=== PATIENT | male | born 1960 | race Caucasian/White ===

== ENCOUNTER 2018-08-15 09:17 | Emergency (ER) | payer OTHER ==
[2018-08-15] MEDS ORDERED: ASPIRIN 81 MG CHEWABLE CTB PO STA (09:25)
[2018-08-15] MEDS ORDERED: NITROGLYCERIN 0.4 MG TAB SL PRN ×2 (09:25→09:27)
[2018-08-15] MEDS ORDERED: SODIUM CHLORIDE 0.9% FLUSH 10 ML SOL IV PRN (09:25)
[2018-08-15] MEDS ORDERED: ALUMINUM/MAGNESIUM 30 ML SUS PO ONE (09:26)
[2018-08-15] MEDS ORDERED: FENTANYL 100MCG/2ML SOL IV PRN (09:27)
[2018-08-15] MEDS ORDERED: ASPIRIN 81 MG CHEWABLE CTB ONE (09:27)
[2018-08-15] MEDS ORDERED: ALUMINUM/MAGNESIUM 30 ML SUS ONE (09:29)
[2018-08-15 09:30] LABS: BASOPHILS % (AUTO) 1 % (0-3); EOSINOPHILS % (AUTO) 4 % (0-9); HEMATOCRIT 45 % (39-53); HEMOGLOBIN 14.8 gm/dl (13.5-17.7); LYMPHOCYTES % (AUTO) 19.4 % (10-50); MEAN CORPUSCULAR HEMOGLOBIN 28.4 pg (27.0-32.0); MEAN CORPUSCULAR HGB CONC 32.6 gm/dl (32.0-36.0); MEAN CORPUSCULAR VOLUME 87 fL (80-100); MONOCYTES % (AUTO) 7.4 % (0-12); NEUTROPHILS % (AUTO) 67.6 % (37-80)
[2018-08-15] MEDS ORDERED: SODIUM CHLORIDE 0.9% 1000ML 1,000 ML IV SCH (09:30)
[2018-08-15 09:32] VITALS: TEMP 97.4
[2018-08-15 09:47] LABS: INR 0.96 (0.86-1.12)
[2018-08-15] MEDS ORDERED: NITROGLYCERIN 0.4 MG TAB SL ONE (09:53)
[2018-08-15 09:58] LABS: ALBUMIN 3.6 gm/dl (3.4-5.0); ALKALINE PHOSPHATASE 73 IU/L (46-116); ALT 30 IU/L (14-63); AST 18 IU/L (15-37); BILIRUBIN,TOTAL 0.3 mg/dl (0.2-1.0); BLOOD UREA NITROGEN 23 mg/dl (7-18); CALCIUM 8.7 mg/dl (8.5-10.1); CARBON DIOXIDE 29.5 mEq/L (21-32); CHLORIDE 103 mMol/L (98-107); CREATININE 1.24 mg/dl (0.80-1.30); GLUCOSE 105 mg/dl (74-106); SODIUM 140 mMol/L (136-145); TOTAL PROTEIN 7.3 gm/dl (6.4-8.2); TROP I < 0.017 ng/ml (0.000-0.056)
[2018-08-15 12:26] LABS: AMPHETAMINES NEGATIVE (NEGATIVE); BARBITUATES NEGATIVE (NEGATIVE); BENZODIAZEPINES NEGATIVE (NEGATIVE); CANNABINOL(THC) POSITIVE (NEGATIVE); COCAINE(COC) NEGATIVE (NEGATIVE); METHADONE NEGATIVE (NEGATIVE); METHAMPHETAMINES NEGATIVE (NEGATIVE); OPIATES(OPI) NEGATIVE (NEGATIVE); OXYCODONE(OXY) NEGATIVE (NEGATIVE); PROPOXYPHENE(PPX) NEGATIVE (NEGATIVE); TRICYCLIC ANTIDEPRESSANTS NEGATIVE (NEGATIVE)
[2018-08-15 13:35] VITALS: BP 143/87; PULSE 63; RESP 18; O2SAT 100
== END 2018-08-15 12:54 | disposition left against medical advice (07) ==
LOC: ED 09:17
DX: R07.89 Other chest pain (principal); K21.9 Gastro-esophageal reflux disease without esophagitis; F17.200 Nicotine dependence, unspecified, uncomplicated
CPT/HCPCS: 36415; 71045; 80053; 80305; 80307; 84484; 85025; 85610; 85730; 93005; 96365; 96366; 99285; 99291; A9270-GY

== ENCOUNTER 2019-05-08 19:43 | Emergency (ER) | payer OTHER ==
[2019-05-08 19:59] VITALS: TEMP 97.1
[2019-05-08] MEDS ORDERED: TDAP VACCINE 0.5 ML SUS IM ONE ×2 (20:36→20:47)
[2019-05-08] MEDS ORDERED: LIDOCAINE HCL 2% MPF 10 ML SOL ONE (20:38)
[2019-05-08] MEDS ORDERED: LIDOCAINE HCL 2% MPF 10 ML SOL SC ONE (20:44)
[2019-05-08] MEDS ORDERED: BACITRACIN 500 U/GM OIN TOP ONE ×2 (21:25→21:28)
[2019-05-08 22:32] VITALS: O2SAT 94
[2019-05-08 22:33] VITALS: BP 141/84; PULSE 90
== END 2019-05-08 21:36 | disposition home or self-care (01) | DRG 605 ==
LOC: ED 19:43
DX: S61.411A Laceration without foreign body of right hand, initial encounter (principal); W26.8XXA Contact with other sharp object(s), not elsewhere classified, initial encounter
CPT/HCPCS: 12004; 90471; 90715; 99284; A9270-GY